=== PATIENT | male | born 1955 | race Caucasian/White ===

== ENCOUNTER 2016-05-13 15:22 | Emergency (ER) | payer OTHER ==
[~2016-05-13] VITALS: Ht 170.2 cm; Wt 97.5 kg
[2016-05-13 17:07] VITALS: BP 153/82
== END 2016-05-13 17:07 | disposition home or self-care (01) ==
LOC: ER 15:22 → EDUNIT# 15:22 → EDBD 15:22 → ER 17:07
DX: I10 Essential (primary) hypertension (principal); R04.0 Epistaxis; E11.9 Type 2 diabetes mellitus without complications
CPT/HCPCS: 93005